=== PATIENT | female | born 1995 ===

== ENCOUNTER 2018-03-25 18:44 | Day surgery (SDC) | payer SELFPAY ==
[2018-03-25 19:33] VITALS: BMI 44.2
[2018-03-25] MEDS ORDERED: Loperamide HCl 2 MG CAP PO SCH (21:30)
[2018-03-25] MEDS ORDERED: Lactated Ringer's 2,000 ML IV SCH (21:30)
--- NOTE | 2018-03-25 22:29 | PRG ---
DATE OF SERVICE: 03/25/2018 OB ER ENCOUNTER PRIMARY OB: Out of town in [place], [place]. CHIEF COMPLAINT: Abdominal pain, nausea, vomiting, and diarrhea. HISTORY OF PRESENT ILLNESS: The patient is a 22-year-old G2, P1 female with an intrauterine at 31 weeks gestation, who recently came to the area for a of a family member and this afternoon began having violent nausea, vomiting, and diarrhea. The patient subsequently began having uterine contractions and back pains and came in for evaluation. The patient denies any sick contacts. She was given Zofran by EMS. The patient denies any previous episodes of this nature. She denies any fever, headache, chest pain, shortness of breath, any new rashes, hip problems, knee problems, muscle weakness, any vaginal bleeding or leakage of fluid, any urinary urgency or frequency. PAST MEDICAL HISTORY: Negative. PAST SURGICAL HISTORY: Orthopedic procedures as a child or as a teenager. ALLERGIES: PENICILLIN, SHE GOT A RASH A CHILD. PROCARDIA HAD HYPOTENSION. MEDICATIONS: Current medications are vitamins. SOCIAL HISTORY: Denies drug, alcohol, or tobacco use. OB LABS: Unavailable at time of dictation. REVIEW OF SYSTEMS: Per HPI. PHYSICAL EXAMINATION: VITAL SIGNS: Blood pressure 128/60, heart rate of 108, respiratory rate of 18, and temperature 98.7. GENERAL: Upon first arrival, the patient had incontinence of stool and appeared to be very uncomfortable. Once she was able to clean herself up and come to the room, the patient appeared to be in no acute distress. She was alert, oriented, cooperative, and pleasant to interact with. HEAD: Normocephalic and atraumatic. LUNGS: Clear to auscultation bilaterally. HEART: Regular rate and rhythm. ABDOMEN: Soft and gravid. EXTREMITIES: Nontender. Nonedematous. GENITOURINARY: Cervix is closed, thick. Vulva without masses, lesions, or erythema. fibronectin was collected. VP3 was also collected. heart tracing, baseline is noted to be in the 140s with positive 15 x 15 accelerations, no decelerations. Contractions on arrival appeared to be about every 2 to 3 minutes. After 2 L of hydration, the patient continues to have contractions visible on the monitor, but not felt anymore. The patient was given 2 L of IV fluids after which she has felt markedly better. Denies uterine contractions. She has not had anymore episode of diarrhea or any vomiting here with us. The patient has been counseled, she can use Imodium [id number] and has been given labor precautions given how quickly she responded to fluids. No further evaluation was performed for concerns of labor. Fetus is reassuring and reactive, and the patient has been discharged to home. Job ID: [id number]
== END 2018-03-25 21:55 | disposition home health service (06) ==
LOC: L&D/OP 18:44
PROVIDERS: ATTEND Obstetrics & Gynecology
DX: O21.2 Late vomiting of pregnancy (principal); O99.89 Other specified diseases and conditions complicating pregnancy, childbirth and the puerperium; R19.7 Diarrhea, unspecified; R10.9 Unspecified abdominal pain; M54.5 Low back pain; Z3A.31 31 weeks gestation of pregnancy; Z79.899 Other long term (current) drug therapy; Z88.0 Allergy status to penicillin; Z88.8 Allergy status to other drugs, medicaments and biological substances
CPT/HCPCS: 96360; 96361; 99285